=== PATIENT | male | born 1935 | race Caucasian/White ===

== ENCOUNTER → 2016-09-30 | Outpatient (CLI) | payer OTHER, MEDICARE | LOC: BHFA 14:00 | PROVIDERS: ATTEND Internal Medicine Cardiovascular Disease | DX: I42.8 Other cardiomyopathies (principal); I48.91 Unspecified atrial fibrillation ==

== ENCOUNTER → 2017-04-01 | Outpatient (CLI) | payer OTHER, MEDICARE ==
[~2017-04-01] MED LIST: IOPAMIDOL (ISOVUE-300) 100 ML BTL ONE
== END ==
LOC: FIMAGING 10:01
PROVIDERS: ATTEND Internal Medicine
DX: N20.0 Calculus of kidney (principal); N20.1 Calculus of ureter; N21.0 Calculus in bladder; K57.30 Diverticulosis of large intestine without perforation or abscess without bleeding; Z90.49 Acquired absence of other specified parts of digestive tract
CPT/HCPCS: 74178; Q9967

== ENCOUNTER 2017-04-22 23:45 | Observation (INO) | payer OTHER, MEDICARE ==
--- NOTE | 2017-04-22 23:55 | CPEKG ---
Heart Rate: 49 RR Interval: 1224 P-R Interval: 200 QRSD Interval: 92 QT Interval: 444 QTC Interval: 401 P Pioche: 58 QRS Pioche: -8 T Wave Pioche: 55 EKG Severity - OTHERWISE NORMAL ECG - EKG Impression: SINUS BRADYCARDIA Electronically Signed By: Buddy Loomis 24-Apr-2017 05:25:48
[2017-04-23 00:28] LABS: INR 1.78 (0.83-1.16); PROTIME(PATIENT) 20.8 SEC (12.0-15.0)
[2017-04-23 00:29] LABS: APTT 31.4 SEC (23.0-38.0)
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
[2017-04-23 00:42] LABS: % IMMATURE GRANULYOCYTES 0.4 % (0.0-1.1); ABSOLUTE IMMATURE GRANULOCYTES 0.02 10^3/uL (0.00-0.10); ADD DIFF? NO; ADD MORPH? NO; ADD SCAN? NO; ANION GAP 8 mEq/L (8-16); ATYPICAL LYMPHOCYTE FLAG 20 (0-99); CALCIUM 9.2 mg/dL (8.5-10.4); CARBON DIOXIDE 24 mEq/l (22-31); CHLORIDE 106 mEq/L (97-110); FRAGMENT RBC FLAG 0 (0-99); GLOMERULAR FILTRATION RATE > 60; GLUCOSE 94 mg/dL (70-100); HEMATOCRIT 44.7 % (40.0-51.0); HEMOGLOBIN 14.9 g/dL (13.7-17.5); LEFT SHIFT FLG 0 (0-99); LIPEMIA HEMOLYSIS FLAG 80 (0-99); MEAN CELL HEMOGLOBIN 28.9 pg (27.9-34.1); MEAN CELL HEMOGLOBIN CONCENTR. 33.3 g/dL (32.4-36.7); MEAN CELL VOLUME 86.6 fL (81.5-99.8); MEAN PLATELET VOLUME 9.1 fL (8.7-11.7); PLATELET CLUMPS FLAG 0 (0-99); PLATELET COUNT 146 10^3/uL (150-400); POTASSIUM 4.5 mEq/L (3.5-5.2); RED BLOOD CELL COUNT 5.16 10^6/uL (4.40-6.38); RED CELL DISTRIBUTION WIDTH 13.1 % (11.5-15.2); SODIUM 138 mEq/L (134-144)
[2017-04-23 00:54] LABS: TROPONIN I < 0.012 ng/mL (0.000-0.034)
[2017-04-23] MEDS ORDERED: ONDANSETRON DISINTEGRATING 4 MG TAB PO PRN (02:10)
[2017-04-23] MEDS ORDERED: ONDANSETRON 4 MG/2 ML VIAL IVP PRN (02:10)
[2017-04-23] MEDS ORDERED: ACETAMINOPHEN 325 MG TAB PO PRN ×2 (02:10→09:14)
--- NOTE | 2017-04-23 04:06 | PDGENHP ---
History and Physical - Chief Complaint Hand pain - History of Present Illness 81 yo M w/ hx of CAD and DVTs presents with bilateral posterior hand/wrist pain. Patient reports prior history of TN in 2013 and multiple subsequent events requiring stents (6 total) during which his anginal equivalent was elbow pain. He denies chest pain, SOB, or other associated symptoms currently, but never experienced any of those symptoms during his prior events either. The hand pain started during a meeting and was not brought on by exertion or emotional stress. It persisted in an on/off fashion for several hours so he decided to come to the ED. At the time of my evaluation he was pain free. History Information - Allergies/Home Medication List Allergies/Adverse Reactions: No Known Allergies Allergy (Verified 02/16/14 10:22) Home Medications: Atorvastatin Calcium [Lipitor 20 mg (*)] 20 mg PO DAILY 02/16/14 [Last Taken 04/25 06:00] Carvedilol [Coreg (*)] 6.25 mg PO BIDMEAL 02/16/14 [Last Taken 09/19/14 06:00] Cholecalciferol Vit D3 [Vitamin D3 (*)] 1,000 units PO DAILY 02/16/14 [Last Taken 09/19/14 06:00] Clopidogrel Bisulfate [Plavix (*)] 75 mg PO DAILY 02/16/14 [Last Taken 09/19/14 06:00] Levothyroxine [Synthroid 175 mcg (*)] 175 mcg PO DAILY06 02/16/14 [Last Taken 06:00] Losartan Potassium [Cozaar 25 mg (*)] 12.5 mg PO DAILY 02/16/14 [Last Taken 04/25 06:00] Multivitamins [Multivitamin (*)] 1 each PO DAILY 02/16/14 [Last Taken 09/19/14 06:00] Spironolactone [Aldactone 25 MG (*)] 12.5 mg PO DAILY 02/16/14 [Last Taken 09/19 06:00] Warfarin Sodium [Coumadin 2.5MG (*)] 3.75 mg PO TH 02/16/14 [Last Taken 09/15/14 ] Warfarin Sodium [Coumadin 2.5MG (*)] 2.5 mg PO [facility] 02/18/14 [Last Taken 09/14/14] Acetaminophen [Tylenol 325mg (*)] 650 mg PO BID PRN 09/15/14 [Last Taken 13:00] I have personally reviewed and updated: family history, medical history - Past Medical History coronary artery disease, DVT - Family History Additional family history: Adopted, does not know family hx - Social History Smoking Status: Never smoked Alcohol Use: None Drug Use: None Review of Systems Review of Systems: ROS: 10pt was reviewed & negative except for what was stated in HPI & below Physical Exam Physical Exam: Temp Pulse Resp BP Pulse Ox 36.6 C 46 L 16 156/71 H 90 L 04/23/17 02:13 04/23/17 02:13 04/23/17 02:13 04/23/17 02:13 04/23/17 02:13 O2 (L/minute) 2 Constitutional: no apparent distress, appears nourished Eyes: PERRL, EOMI Ears, Nose, Mouth, Throat: moist mucous membranes, no oral mucosal ulcers Cardiovascular: regular rate and rhythym, no murmur, rub, or gallop Respiratory: no respiratory distress, no rales or rhonchi Gastrointestinal: normoactive bowel sounds, soft, non-tender abdomen Skin: warm, normal color Musculoskeletal: full muscle strength, no muscle tenderness, other (No TTP at site of pain (dorsal hands/wrists)) Neurologic: AAOx3, CN II-XII Intact Psychiatric: interacting appropriately, not anxious Lab Data & Imaging Review 04/23/17 00:11 04/23/17 00:11 WBC 5.43 10^3/uL (3.80-9.50) 04/23/17 00:11 RBC 5.16 10^6/uL (4.40-6.38) 04/23/17 00:11 Hgb 14.9 g/dL (13.7-17.5) 04/23/17 00:11 Hct 44.7 % (40.0-51.0) 04/23/17 00:11 MCV 86.6 fL (81.5-99.8) 04/23/17 00:11 MCH 28.9 pg (27.9-34.1) 04/23/17 00:11 MCHC 33.3 g/dL (32.4-36.7) 04/23/17 00:11 RDW 13.1 % (11.5-15.2) 04/23/17 00:11 Plt Count 146 10^3/uL (150-400) L 04/23/17 00:11 MPV 9.1 fL (8.7-11.7) 04/23/17 00:11 Neut % (Auto) 51.0 % (39.3-74.2) 04/23/17 00:11 Lymph % (Auto) 34.4 % (15.0-45.0) 04/23/17 00:11 Robertson % (Auto) 9.4 % (4.5-13.0) 04/23/17 00:11 Eos % (Auto) 3.9 % (0.6-7.6) 04/23/17 00:11 Baso % (Auto) 0.9 % (0.3-1.7) 04/23/17 00:11 Nucleat RBC Rel Count 0.0 % (0.0-0.2) 04/23/17 00:11 Absolute Neuts (auto) 2.77 10^3/uL (1.70-6.50) 04/23/17 00:11 Absolute Lymphs (auto) 1.87 10^3/uL (1.00-3.00) 04/23/17 00:11 Absolute Monos (auto) 0.51 10^3/uL (0.30-0.80) 04/23/17 00:11 Absolute Eos (auto) 0.21 10^3/uL (0.03-0.40) 04/23/17 00:11 Absolute Basos (auto) 0.05 10^3/uL (0.02-0.10) 04/23/17 00:11 Absolute Nucleated RBC 0.00 10^3/uL (0-0.01) 04/23/17 00:11 Immature Gran % 0.4 % (0.0-1.1) 04/23/17 00:11 Immature Gran # 0.02 10^3/uL (0.00-0.10) 04/23/17 00:11 PT 20.8 SEC (12.0-15.0) H 04/23/17 00:11 INR 1.78 (0.83-1.16) H 04/23/17 00:11 APTT 31.4 SEC (23.0-38.0) 04/23/17 00:11 Sodium 138 mEq/L (134-144) 04/23/17 00:11 Potassium 4.5 mEq/L (3.5-5.2) 04/23/17 00:11 Chloride 106 mEq/L (97-110) 04/23/17 00:11 Carbon Dioxide 24 mEq/l (22-31) 04/23/17 00:11 Anion Gap 8 mEq/L (8-16) 04/23/17 00:11 BUN 22 mg/dL (7-23) 04/23/17 00:11 Creatinine 1.0 mg/dL (0.7-1.3) 04/23/17 00:11 Estimated GFR > 60 04/23/17 00:11 Glucose 94 mg/dL (70-100) 04/23/17 00:11 Calcium 9.2 mg/dL (8.5-10.4) 04/23/17 00:11 Troponin I < 0.012 ng/mL (0.000-0.034) 04/23/17 00:11 Visualized and Interpreted EKG results: Yes EKG additional interpertation: Sinus luiza, poor R wave progression in precordial leads Assessment & Plan Assessment: 81 yo M presenting with b/l dorsal hand pain, which may represent anginal equivalent. Plan: 1. Bilateral dorsal hand/wrist pain - Patient reports prior anginal equivalent was elbow pain. He has history of prior TN with multiple sents (he reports 6). Initial troponin and ECG without signs of acute ischemia. - Trend enzymes - Monitor on telemetry - If ACS rule-out negative, would likely recommend risk stratification w/ nuc stress as outpatient 2. Hx of CAD - With TN in 2013 and multiple stents since. On ASA, statin, BB as outpatient. 3. 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 On warfarin as outpatient, INR 1.7 on admission. Diet - NPO pending ACS rule-out Code - Full Ppx - Warfarin Dispo - Admit to observation status, suspect will be able to d/c home after period of observation
[2017-04-23 04:44] VITALS: TEMP 98.2; O2SAT 99
[2017-04-23 07:53] VITALS: BP 123/72; PULSE 49; RESP 12
[2017-04-23 08:04] LABS: ANION GAP 8 mEq/L (8-16); CALCIUM 8.5 mg/dL (8.5-10.4); CARBON DIOXIDE 23 mEq/l (22-31); CHLORIDE 108 mEq/L (97-110); CREATININE 0.8 mg/dL (0.7-1.3); GLOMERULAR FILTRATION RATE > 60; GLUCOSE 89 mg/dL (70-100); MAGNESIUM 1.7 mg/dL (1.6-2.3); POTASSIUM 4.2 mEq/L (3.5-5.2); SODIUM 139 mEq/L (134-144)
[2017-04-23 08:14] LABS: TROPONIN I < 0.012 ng/mL (0.000-0.034)
[2017-04-23] MEDS ORDERED: NITROGLYCERIN 0.4 MG BTL SL PRN (09:14)
[2017-04-23] MEDS ORDERED: CHOLECALCIFEROL VIT D3 1,000 UNITS TAB PO SCH (09:15)
[2017-04-23] MEDS ORDERED: ATORVASTATIN CALCIUM 20 MG TAB PO SCH (09:15)
[2017-04-23] MEDS ORDERED: LEVOTHYROXINE 175 MCG TAB PO SCH ×2 (09:15→09:30)
[2017-04-23] MEDS ORDERED: CLOPIDOGREL BISULFATE 75 MG TAB PO SCH (09:15)
--- NOTE | 2017-04-23 10:26 | GDS ---
[f rep st] DISCHARGE SUMMARY NEW DIAGNOSES: 1. Acute bilateral left wrist pain, musculoskeletal in origin. No evidence of cardiac ischemia. 2. Hypertension with initial elevated blood pressure, now normal. 3. Coumadin anticoagulation with an INR of 1.7. Anticoagulation for history of VTE. 4. History of coronary artery disease, status post myocardial infarction [address] acements. CONSULTATIONS: Cardiology. PROCEDURES: None. HOSPITAL COURSE: A 81-year-old male with a known history of coronary disease and VTE, on Coumadin an ticoagulation, who also suffers from hypertension. He presented with bilateral wrist pain. His prio r presentations for acute coronary ischemia had been bilateral elbow pain. He was concerned, present ed, and was found to have serial troponins which were normal. He never had chest pain, orthopnea, or PND. The remainder of his laboratory was normal. INR was 1.7 at the time of admission. The gentleman remained pain free. He was reassured that he was not having evidence of coronary ische hubert. It is noted that he has had a recurrent cough for the last 18 months and had been taking losart an. His losartan will be stopped due to a possibility that it is causing the cough, and his blood pr essure will be checked again as an outpatient. We will continue his Aldactone and Coreg for blood pr essure control. DISCHARGE MEDICATIONS: Stopped medication will be losartan. He will continue his other usual medica tions as follows: Vitamin D3 1000 international units daily; Aldactone 12.5 mg daily; multivitamin d aily; Synthroid 175 mcg daily; Plavix 75 daily; Coreg 6.5 mg twice daily; Lipitor 20 mg daily; Coumad in 1.25 mg on Friday and 2.5 mg Friday, Friday, Friday, , Friday; Tylenol p.r.n. ; nitroglycerin 0.4 mg sublingual p.r.n. FOLLOWUP: He will follow up with Dr. Alex Crowe in approximately 2 weeks, and that appointment will be established through [facility]. At that time, blood pressure will also be recheck in light of stopping his Cozaar. Should he have further evidence of chest pain, he will follow up more quickly with [facility] or return to the emergency department. Matters to be addressed at the first followup: A recheck of the gentleman's blood pressure in light of the fact that we have now stopped the Cozaar. TIME: This discharge required 40 minutes, greater than 50% to weight loss counselor, coordinate his care, and expl ain to the patient our findings and the reason for stopping the Cozaar. /[id number]/MODL
--- NOTE | 2017-04-23 14:59 | ASDISCHSUM ---
Discharge Information Plan Status:Home with No Needs Medically Cleared to Leave: Discharge Date:04/23/2017 10:01 AM CM D/C Disposition:Home, Routine, Self-Care ADT D/C Disposition:Home, Routine, Self-Care Projected Discharge Date:04/23/2017 10:01 AM Transportation at D/C: Discharge Delay Reason: Follow-Up Date:04/23/2017 10:01 AM Discharge Slot: Final Diagnosis: Placement Information Patient Contact Information Contact Name:BOBO Relationship: Address:[address] [place] [address] City:[place] Alternate Phone: [facility] Code: [id number] Email: Financial Information Financial Class: Primary Plan Desc:MEDICARE OUTPATIENT Primary Plan Number:[id number] Secondary Plan Desc:[employer]/MDR SUPPLEMENT Secondary Plan Number:[id number] Assessment Information Intervention Information Intervention Type:*MARADIAGA-Signed Date of Service:04/23/2017 09:30 AM Patient Type:Observation Staff Member:Mary Caldera Hours: Discipline: Severity: Comment:
[2017-04-23] MEDS ORDERED: WARFARIN SODIUM 2.5 MG TAB PO SCH (16:00)
[2017-04-23] MEDS ORDERED: CARVEDILOL 6.25 MG TAB PO SCH (18:00)
--- NOTE | 2017-04-24 03:43 | GCON ---
[f rep st] CONSULTATION DATE OF CONSULTATION: 04/23/2017 CHIEF COMPLAINT: We have been asked by Dr. Syed to evaluate this patient with the chief complaint of bilateral wrist pain. HISTORY OF PRESENT ILLNESS: The patient is a 81-year-old gentleman with known coronary artery diseas e, who presents with the chief complaint of bilateral wrist pain. The patient was in his usual state of health until the evening of admission, when he began to experience bilateral wrist pain. The keith n is described as an ache and is not associated with nausea, vomiting, or diaphoresis. There are no obvious precipitating or relieving factors. The patient became concerned that the bilateral wrist pa in may be a symptom of ischemic heart disease, and presented to the emergency department for further evaluation. In the emergency department, he had an EKG performed, which demonstrated no acute ST and T-wave changes. His initial biomarkers were within normal limits. The patient was admitted to the hospital for further evaluation. We have been consulted to help in the further management of this pa tient. The patient does have a previous history of coronary artery disease, and is status post a pre vious anterior myocardial infarction. He has been treated with previous percutaneous coronary interv entions of his left anterior descending coronary artery, as well as his right coronary artery. His p revious anginal symptoms, however, were bilateral elbow pain associated with shortness of breath. Th e patient denies his typical anginal symptoms. 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 The patient denies symptoms of orthopnea and PND . The patient has been under stress with the recent loss of his . PAST MEDICAL HISTORY: 1. Coronary artery disease. 2. Hypertension. 3. Hyperlipidemia. 4. Hypothyroidism. 5. History of deep venous thrombosis and pulmonary embolism. MEDICATIONS: Please see medicine reconciliation form. ALLERGIES: No known drug allergies. SOCIAL HISTORY: The patient has been under stress with the recent loss of his . He does not smo ke. He denies problems with alcohol. FAMILY HISTORY: Unknown as patient is adopted. REVIEW OF SYSTEMS: A 10-point review of systems is negative, except as noted in the HPI. PHYSICAL EXAMINATION: GENERAL: The patient is resting comfortably in bed. He does not appear to be in acute distress. VITAL SIGNS: Temperature is afebrile. Pulse is 49, blood pressure 123/72, resp iratory rate is 12, SaO2 is 99% on 2 L nasal cannula. HEENT: Normocephalic, atraumatic. Extraocula r muscles intact. NECK: No JVD. No bruits. LUNGS: Clear to auscultation bilaterally. CARDIOVASC ULAR: Regular rate and rhythm, S1, S2. Grade 2/6 holosystolic murmur is noted at the left sternal b order. ABDOMEN: Soft, nontender. Normoactive bowel sounds. No hepatosplenomegaly noted. Aorta co uld not be palpated. EXTREMITIES: No clubbing, cyanosis, or edema. Of note, the patient's bilatera l wrist pain was reproduced with palpation of the metacarpophalangeal joint. SKIN: No evidence of r ashes. NEURO: Patient awake, alert, and oriented x3. LABORATORY: White blood cell count 5.43. Hemoglobin 14.9, hematocrit 44.7, platelet count 146, INR 1.78. Sodium 139, potassium 4.2, chloride 108, CO2 23, BUN 18, creatinine 0.8. Troponin within norm al limits x2. EKG demonstrates sinus bradycardia, normal axis. Normal intervals. No acute ST or T- wave changes. ASSESSMENT AND PLAN: The patient is a 81-year-old gentleman with known coronary artery disease, who presents with bilateral wrist pain. The patient's wrist pain is unlike his previous anginal pain, wh ich he has had on multiple occasions, which is described as bilateral elbow pain. The pain is reprod uced with palpation of the metacarpophalangeal joints. There is no evidence of ischemia by EKG or bi omarker criteria. Suspect the patient's current symptomatology is likely secondary to musculoskeleta l stress. I think it is reasonable to discharge patient home. Will obtain a stress test for risk st ratification as an outpatient. /[id number]/MODL
[2017-04-24] MEDS ORDERED: SPIRONOLACTONE 25 MG TAB PO SCH (09:00)
[2017-04-24] MEDS ORDERED: MULTIVITAMINS 1 EACH TAB PO SCH (09:00)
[2017-04-29] MEDS ORDERED: LEVOTHYROXINE 175 MCG TAB PO SCH (06:00)
[2017-04-29] MEDS ORDERED: WARFARIN SODIUM 2.5 MG TAB PO SCH (16:00)
== END 2017-04-23 10:01 | disposition home or self-care (01) ==
LOC: F2W 04-23 02:00
PROVIDERS: ADMIT Student in an Organized Health Care Education/Training Program; ATTEND Internal Medicine Pulmonary Disease
DX: M25.531 Pain in right wrist (principal); M25.532 Pain in left wrist; I25.10 Atherosclerotic heart disease of native coronary artery without angina pectoris; R91.1 Solitary pulmonary nodule; I25.2 Old myocardial infarction; I10 Essential (primary) hypertension; R78.5 Finding of other psychotropic drug in blood; E03.9 Hypothyroidism, unspecified; J45.909 Unspecified asthma, uncomplicated; G47.33 Obstructive sleep apnea (adult) (pediatric); Z86.718 Personal history of other venous thrombosis and embolism; Z86.711 Personal history of pulmonary embolism; Z95.5 Presence of coronary angioplasty implant and graft; Z96.653 Presence of artificial knee joint, bilateral; Z79.01 Long term (current) use of anticoagulants; Z79.82 Long term (current) use of aspirin
CPT/HCPCS: 71020; 93005; 99285; G0378

== ENCOUNTER → 2017-04-22 | Outpatient (CLI) | payer OTHER, MEDICARE | LOC: FIMAGING 10:22 | PROVIDERS: ATTEND Physician Assistant Medical | DX: N20.2 Calculus of kidney with calculus of ureter (principal) ==

== ENCOUNTER → 2017-04-24 | Outpatient (CLI) | payer OTHER, MEDICARE | LOC: CIMAGING 10:22 | PROVIDERS: ATTEND Specialist | DX: N13.2 Hydronephrosis with renal and ureteral calculous obstruction (principal); K44.9 Diaphragmatic hernia without obstruction or gangrene; I70.0 Atherosclerosis of aorta | CPT/HCPCS: 74176-PO ==

== ENCOUNTER → 2017-04-30 | Outpatient (CLI) | payer OTHER, MEDICARE ==
--- NOTE | 2017-04-30 14:38 | CPR ---
[f rep st] NONINVASIVE CARDIAC PROCEDURE REPORT DATE OF PROCEDURE: 04/30/2017 STUDY: Exercise treadmill stress test. This is an outpatient stress test. REASON FOR TEST: 1. Coronary artery disease. 2. PVCs. FINDINGS: Resting EKG shows a regular sinus bradycardic rate of 44, no ischemic changes noted. Rest ing blood pressure is 138/82. Resting heart rate 44, oxygen saturation 94%. Stress portion: He was exercised according to the Rene protocol for a total of 9 minutes. Max met effort 9.5, maximal heart rate 120. Max blood pressure 168/78. He did have an increase in PVCs with some bigeminy during exercise. He remained asymptomatic. RECOVERY: He spontaneously recovered. EKG remained sinus. PVCs became occasional during recovery. There were no ischemic changes. Resting recovery blood pressure 164/80, heart rate 64. He had good exercise tolerance. At this time, he currently is stable for nuclear imaging. /[id number]/MODL
== END ==
LOC: FIMAGING 12:26
PROVIDERS: ATTEND Internal Medicine Cardiovascular Disease
DX: I51.89 Other ill-defined heart diseases (principal); I25.2 Old myocardial infarction; Z95.5 Presence of coronary angioplasty implant and graft

== ENCOUNTER 2017-05-29 06:25 | Observation (INO) | payer OTHER, MEDICARE ==
[~2017-05-29 06:25] MED LIST changes: -IOPAMIDOL (ISOVUE-300) 100 ML BTL ONE; +levOFLOXACIN 500 MG/DEXTROSE 100 ML IV ONE
[2017-05-29] MEDS ORDERED: LR 1,000 ML IV ONE (07:06)
[2017-05-29] MEDS ORDERED: LIDOCAINE 1% 2 ML INJ ID PRN (07:06)
[2017-05-29 07:41] LABS: INR 1.1 (0.83-1.16); PROTIME(PATIENT) 14.1 SEC (12.0-15.0)
--- NOTE | 2017-05-29 08:16 | PDANEPAE ---
ANE History of Present Illness urolitiasis ANE Past Medical History - Cardiovascular History Hx Hypertension: Yes Hx Arrhythmias: No Hx Chest Pain: No Hx Coronary Artery / Peripheral Vascular Disease: No Hx CHF / Valvular Disease: No Hx Palpitations: No Cardiovascular History Comment: has pvc's with elevated hr - Pulmonary History Hx COPD: No Hx Asthma/Reactive Airway Disease: No Hx Recent Upper Respiratory Infection: No Hx Oxygen in Use at Home: No Hx Sleep Apnea: Yes Sleep Apnea Screening Result - Last Documented: Positive Pulmonary History Comment: mild asthma enviromental - Neurologic History Hx Cerebrovascular Accident: No Hx Seizures: No Hx Dementia: No - Endocrine History Hx Diabetes: No - Renal History Hx Renal Disorders: No - Liver History Hx Hepatic Disorders: No - Neurological & Psychiatric Hx Hx Neurological and Psychiatric Disorders: No - Cancer History Hx Cancer: No - Congenital Disorder History Hx Congenital Disorders: No - GI History Hx Gastrointestinal Disorders: No - Other Health History Other Health History: none - Chronic Pain History Chronic Pain: No - Surgical History 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 ANE Review of Systems Review of Systems: - Exercise capacity METS (RN): 5 METS ANE Patient History - Allergies Allergies/Adverse Reactions: No Known Allergies Allergy (Verified 02/16/14 10:22) - Home Medications Home Medications: RX: Atorvastatin Calcium [Lipitor 20 mg (*)] 02/16/14 [Last Taken 05/29/17 06: 00] RX: Carvedilol [Coreg (*)] 02/16/14 [Last Taken 05/29/17 06:00] RX: Cholecalciferol Vit D3 [Vitamin D3 (*)] 02/16/14 [Last Taken 05/24/17] RX: Clopidogrel Bisulfate [Plavix (*)] 02/16/14 [Last Taken 05/29/17 06:00] RX: Levothyroxine [Synthroid 175 mcg (*)] 02/16/14 [Last Taken 04/22/17] RX: Multivitamins [Multivitamin (*)] 02/16/14 [Last Taken 05/24/17] RX: Spironolactone [Aldactone 25 MG (*)] 02/16/14 [Last Taken 05/28/17 08:00] RX: Warfarin Sodium [Coumadin 2.5MG (*)] 02/16/14 [Last Taken 04/22/17] RX: Warfarin Sodium [Coumadin 2.5MG (*)] 02/18/14 [Last Taken 05/26/17] RX: Acetaminophen [Tylenol 325mg (*)] 09/15/14 [Last Taken 05/15/17] RX: Levothyroxine [Synthroid 175 mcg (*)] 04/23/17 [Last Taken 05/29/17 06:00] RX: Nitroglycerin [Nitrostat 0.4 mg (*)] 04/23/17 [Last Taken Unknown] ISOSORBIDE DINITRATE PRN 05/07/17 [Last Taken Unknown] - NPO status NPO Since - Liquids (Date): 05/28/17 NPO Since - Liquids (Time): 21:00 NPO Since - Solids (Date): 05/28/17 NPO Since - Solids (Time): 18:15 - Smoking Hx Smoking Status: Never smoked - Family Anes Hx Family Hx Anesthesia Complications: none ANE Labs/Vital Signs - Vital Signs Blood Pressure: 107/58 Heart Rate: 52 Respiratory Rate: 16 O2 Sat (%): 93 Height: 177.8 cm Weight: 97.522 kg ANE Physical Exam - Airway Neck exam: FROM Mallampati Score: Class 2 Mouth exam: normal dental/mouth exam - Pulmonary Pulmonary: no respiratory distress - Cardiovascular Cardiovascular: regular rate and rhythym - ASA Status ASA Status: III ANE Anesthesia Plan Anesthesia Plan: GA w LMA
--- NOTE | 2017-05-29 08:20 | PDHPUP ---
History & Physical Update H&P update statement: This history and physical update is based on an assessment of the patient which was completed after admission or registration (within 24 hours), but prior to the surgery/procedure. H&P update: H&P reviewed & patient examined
[2017-05-29] MEDS ORDERED: ONDANSETRON 4 MG/2 ML VIAL ONE (08:27)
[2017-05-29] MEDS ORDERED: fentaNYL 100 MCG/2 ML INJ ONE ×5 (08:27→13:37)
[2017-05-29] MEDS ORDERED: DEXAMETHASONE 4 MG/ML VIAL ONE (08:27)
[2017-05-29] MEDS ORDERED: PROPOFOL 200 MG/20 ML VIAL ONE ×2 (08:28)
[2017-05-29] MEDS ORDERED: IOPAMIDOL (ISOVUE-M 300) 15 ML VIAL ONE (08:45)
[2017-05-29] MEDS ORDERED: LIDOCAINE 2% JELLY 20 ML (UROJECT) ONE (08:45)
[2017-05-29] MEDS ORDERED: ONDANSETRON 4 MG/2 ML VIAL IVP PRN ×2 (09:30→14:51)
[2017-05-29] MEDS ORDERED: PROMETHAZINE HCL 25 MG/ML INJ IVP PRN ×2 (09:30→14:51)
[2017-05-29] MEDS ORDERED: NALOXONE HCL 0.4 MG/ML INJ IVP PRN (09:30)
--- NOTE | 2017-05-29 10:28 | POSTANESTH ---
Post Anesthetic Evaluation Cardiovascular Status: Normal, Stable Respiratory Status: Normal, Stable Level of Consciousness/Mental Status: Can Participate in Eval Pain Control: Adequate, Prn Tx Ordered Nausea/Vomiting Control: Adequate, Prn Tx Ordered Complications Possibly Related to Anesthesia: None Noted
--- NOTE | 2017-05-29 10:30 | POSTOPPROG ---
Post Op Note Date of Operation: 05/29/17 Surgeon: Azeem Trimble (# [id number]) Anesthesia: GET(General Endotracheal) Pre-op Diagnosis: 1. Left ureteral calculus 2. Left renal calculus 3. Mult. bladder ston Post-op Diagnosis: 1. Left renal calculus 2. Multiple bladder stones Procedure: Cysto, Left ureteroscopy/nephroscopy w/ laser, complex cystolitholapaxy Findings: See op note Inf/Abcess present in the surg proc area at time of surgery?: No EBL: Minimal Complications: None Drains: Other (4.7 Fr. x 24 cm left ureteral stent) Specimen(s): None
[2017-05-29] MEDS: fentaNYL 100 MCG/2 ML INJ IVP PRN ×5 (10:56→13:42)
[2017-05-29] MEDS ORDERED: PHENAZOPYRIDINE HCL 200 MG TAB ONE (10:59)
[2017-05-29] MEDS: PHENAZOPYRIDINE HCL 200 MG TAB PO SCH ×3 (11:33→21:14)
[2017-05-29] MEDS ORDERED: HYDROCODONE/APAP 5/325 TAB PO PRN (11:35)
[2017-05-29] MEDS ORDERED: HYDROCODONE/APAP 5/325 TAB ONE (11:39)
--- NOTE | 2017-05-29 13:17 | GOP ---
[f rep st] OPERATIVE REPORT DATE OF OPERATION: 05/29/2017 SURGEON: Azeem Trimble MD ANESTHESIA: General endotracheal. PREOPERATIVE DIAGNOSIS: 1. Left nephroureterolithiasis. 2. Multiple bladder calculi. POSTOPERATIVE DIAGNOSIS: 1. Dominant left lower pole nephrolithiasis. 2. Spontaneously-passed left ureterolithiasis. 3. Multiple bladder calculi. PROCEDURE PERFORMED: 1. Cystourethroscopy, left retrograde pyelography. 2. Left ureteroscopy and nephroscopy with holmium laser lithotripsy of dominant left renal calculus. 3. Complex cystolitholapaxy. FINDINGS: 1. No evidence of remaining left ureteral calculi. 2. Dominant left lower pole renal calculus, managed as noted in the body of the operative report. 3. Multiple small bladder calculi, each ranging up to 1 cm in diameter. SPECIMENS: None. ESTIMATED BLOOD LOSS: Minimal. INDICATIONS: This gentleman was recently identified to have multiple bladder calculi as well as a distal left ureteral calculus. CT imaging also identified a dominant left lower pole renal calculus that was approximately 1 cm in diameter. It was recommended the patient undergo intraoperative management, particularly for the left ureteral calculus and multiple bladder calculi. The indications for the procedures, as well as potential risks and complications, were discussed with the patient preoperatively. He appeared to understand, his questions were answered, and he wished to proceed. Written informed surgical consent was thereafter obtained. DESCRIPTION OF PROCEDURE: The patient was brought to the operating room and administered general endotracheal anesthesia. He was carefully placed in the dorsal lithotomy position on the cystoscopic table. The genital area was sterilely prepped with Betadine scrub and paint then draped in usual sterile fashion. Cystoscopy was performed with 30-degree and 70-degree lenses through a 22-Turkmen sheath. Anterior urethra revealed no abnormalities. Posterior urethra revealed mild to moderate lateral lobe BPH and a small intravesical prostatic median lobe. The bladder was heavily trabeculated with numerous diverticula, located particularly along the base of the bladder. There were multiple calculi seen within the bladder, the largest being approximately 1 cm. Several of these were located within some of the deeper bladder diverticula. No areas of abnormal erythema nor tumors were otherwise seen. Ureteral orifices were normal in regard to shape and position along the trigone. I did evaluate the left ureter first and dealt with the bladder stones last. Therefore, a cone-tip catheter was used to perform retrograde pyelography on the left side. This revealed some J-hooking of the distal left ureter but no obvious intraluminal filling defects and no hydronephrosis. Fluoroscopic imaging before contrast injection did reveal a sizable highly radiopaque calculus in the lower pole of the left kidney. This correlated with the one that was noted to be approximately 1 cm diameter on preoperative imaging. After completion of retrograde pyelography, I decided to proceed with ureteroscopy to ensure there were no remaining calculi in the left ureter. Therefore, I passed a 0.035 inch angle-tipped hydrophilic guidewire up the left ureter until it was seen within the renal collecting system fluoroscopically. The distal aspect of the ureter was dilated with a 4 cm balloon by maintaining a pressure of 16 atmospheres for about 4 minutes. The balloon dilator and cystoscope were then removed while keeping the guidewire in place. Semi-rigid ureteroscopy was performed alongside the guidewire. The ureteroscope was advanced all the way to the ureteropelvic junction, and no calculi were seen within the ureter. It appeared that the left ureteral calculus had spontaneously passed, either into the bladder or spontaneously completely out. At this point, I decided to attempt to perform retrograde flexible nephroscopy in an effort to deal with the dominant left lower pole renal calculus. Therefore, a 0.035 inch Super Stiff Amplatz guidewire was advanced through the rigid ureteroscope until it was seen within the renal collecting system fluoroscopically. The ureteroscope was then removed, thereby keeping [address] A 55 cm hydrophilic ureteral access sheath was advanced over the Amplatz guidewire, under active fluoroscopy, until the proximal aspect of the sheath was seen at the ureteropelvic junction. The inner obturator and Amplatz guidewire were then removed, thereby keeping the outer access sheath and secondary guidewire in place. Flexible ureteroscopy and nephroscopy were performed through the ureteral access sheath. I was able to identify the dominant calculus in the lower pole of the left kidney. I used a 200 micron holmium laser fiber to fully fragment this calculus into minute pieces, to the point that no fragments were larger than 1 mm at the conclusion of the case. I flushed as many of these little stone fragments from the lower pole and into the renal pelvis as possible. The ureteroscope and ureteral access sheath were then removed in tandem while keeping the guidewire in place. There was minimal ureteral mucosal trauma as a result of the operative process. The cystoscope was then back loaded over the guidewire and a 4.7-Turkmen by 24 cm hydrophilic ureteral stent advanced over the guidewire until it was properly positioned as seen fluoroscopically in the kidney and cystoscopically in the bladder. I then used an Ellik evacuator and flexible grasping forceps to remove all of the bladder calculi. None of these were submitted for chemical analysis. At the conclusion of the procedure, the bladder was free of calculi and the left ureteral stent was in proper position. The instruments were removed, and the urine return was clear at this point. Then, 20 cc of 2% lidocaine was injected transurethrally for postoperative analgesic purposes. The patient was then awakened, extubated, transferred to his bed, then taken to the recovery room. He tolerated the procedure well overall. COMPLICATIONS: None. DISPOSITION: He was transferred to the recovery room in stable condition. He will be instructed to follow up in my office in approximately 3 weeks for ureteral stent removal. KUB will be obtained at that time as well. /[id number]/MODL MTDD
[2017-05-29] MEDS ORDERED: KETOROLAC 15 MG/1 ML SDV IVP ONE (14:22)
[2017-05-29] MEDS ORDERED: HYDROCODONE/APAP 10/325 TAB PO PRN (14:51)
[2017-05-29] MEDS ORDERED: D5W 1/2 NS 1,000 ML IV SCH (15:00)
[2017-05-29] MEDS ORDERED: HYDROmorphONE/DILAUDID 1 MG/ML INJ IVP PRN (15:35)
[2017-05-29] MEDS: KETOROLAC 15 MG/1 ML SDV IVP SCH (20:45)
[2017-05-29 22:06] VITALS: RESP 16
[2017-05-30] MEDS: PHENAZOPYRIDINE HCL 200 MG TAB PO SCH ×3 (00:09→08:50)
[2017-05-30 03:38] VITALS: O2SAT 93
[2017-05-30] MEDS: KETOROLAC 15 MG/1 ML SDV IVP SCH ×2 (03:47→08:49)
[2017-05-30 08:34] VITALS: BP 155/71; PULSE 48; TEMP 98
--- NOTE | 2017-05-30 14:34 | ASDISCHSUM ---
Discharge Information Plan Status: Medically Cleared to Leave: Discharge Date:05/30/2017 09:30 AM CM D/C Disposition: ADT D/C Disposition:Home, Routine, Self-Care Projected Discharge Date:05/30/2017 09:30 AM Transportation at D/C: Discharge Delay Reason: Follow-Up Date:05/30/2017 09:30 AM Discharge Slot: Final Diagnosis: Placement Information Patient Contact Information Contact Name:DENISE Relationship:Son Address:[address] [place] [address] City:[place] Alternate Phone: State/Zip Code: [address] Email: Financial Information Financial Class: Primary Plan Desc:MEDICARE INPATIENT Primary Plan Number:[id number] Secondary Plan Desc:[employer]/M[employer] SUPPLEMENT Secondary Plan Number:[id number] Assessment Information Intervention Information Intervention Type:*Incorrect Registration Date of Service:05/30/2017 09:52 AM Patient Type:Observation Staff Member:MEGAN Interiano Courtney Hours: Discipline: Severity: Comment:
== END 2017-05-30 09:30 | disposition home or self-care (01) ==
LOC: FSGY 06:25 → INTOOBSV 16:10 → F1N 16:10
PROVIDERS: ADMIT Specialist; ATTEND Specialist
DX: N21.0 Calculus in bladder (principal); N13.2 Hydronephrosis with renal and ureteral calculous obstruction; Z87.442 Personal history of urinary calculi; I25.2 Old myocardial infarction; Z86.718 Personal history of other venous thrombosis and embolism; R35.1 Nocturia; N28.1 Cyst of kidney, acquired
CPT/HCPCS: 52317; 52356; 76001; C1726; C1758; C1769; C1894; C2625; J1100; J1885; J1956; J2405; J2704; J3010; Q9967

== ENCOUNTER → 2017-06-18 | Outpatient (CLI) | payer OTHER, MEDICARE | LOC: FIMAGING 13:57 | PROVIDERS: ATTEND Specialist | DX: Z87.442 Personal history of urinary calculi (principal) ==

== ENCOUNTER 2018-01-05 14:57 | Emergency (ER) | payer OTHER, MEDICARE ==
[2018-01-05] MEDS ORDERED: TDAP ADULT 0.5 ML INJ (BOOSTRIX) IM ONE (15:58)
--- NOTE | 2018-01-05 16:03 | EDPHY ---
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 His arm did not get impacted by the wood physician's assistant proper. No paresthesia. No sensory motor deficit. Notes that these edema has decreased since placing ice packs on it. Incident occurred earlier today. PHYSICAL EXAM (Prior to examination, patient consented to physical exam, hands were washed and my usual and customary physical exam procedures followed) 1) GENERAL: Well-developed, well-nourished, alert and oriented. Appears to be in no acute distress. 2) HEAD: Normocephalic 3) HEENT: sclera anicteric 4) LUNGS: Breathing comfortably. 5) SKIN: Right upper extremity: Multiple superficial abrasions and skin avulsions. Multiple areas of ecchymosis. Soft compartments. Distal pulses are present and brisk with brisk capillary refill normal temperature. 6) MUSCULOSKELETAL: Tender to palpation of the mid shaft radius. 7) NEUROLOGIC: Radial ulnar median nerve function intact. Smoking Status: Never smoked Constitutional: Initial Vital Signs Temperature (C) 36.4 C 01/05/18 15:03 Heart Rate 56 L 01/05/18 15:03 Respiratory Rate 16 01/05/18 15:03 Blood Pressure 152/73 H 01/05/18 15:03 O2 Sat (%) 95 01/05/18 15:03 O2 Delivery Mode Room Air Allergies/Adverse Reactions: No Known Allergies Allergy (Verified 01/05/18 15:01) Home Medications: Medication Instructions Recorded Atorvastatin Calcium [Lipitor 20 20 mg PO DAILY 05/29/17 mg (*)] Carvedilol [Coreg (*)] 6.25 mg PO BIDMEAL 05/29/17 Cholecalciferol Vit D3 [Vitamin D3 1,000 units PO DAILY 05/29/17 (*)] Clopidogrel Bisulfate [Plavix (*)] 75 mg PO DAILY 05/29/17 Levothyroxine [Synthroid 175 mcg 87.5 mcg PO TU@06 05/29/17 (*)] Levothyroxine [Synthroid 175 mcg 175 mcg PO SUMOWETHFR@05/29/17 (*)] Multivitamins [Multivitamin (*)] 1 each PO DAILY 05/29/17 Nitroglycerin [Nitrostat 0.4 mg 0.4 mg SL Q5M PRN 05/29/17 (*)] Spironolactone [Aldactone 25 MG 12.5 mg PO DAILY 05/29/17 (*)] Warfarin Sodium [Coumadin 2.5MG 1.25 mg PO TU@05/29/17 (*)] Warfarin Sodium [Coumadin 2.5MG 2.5 mg PO SUMOWETHFRSA@05/29/17 (*)] MDM/Departure - MDM Imaging Results: Imaging Impressions Forearm X-Ray 01/05/18 15:59 Impression: No evidence of fracture of the right radius or ulna. Medications Given: Discontinued Medications Diphtheria/Tetanus/Acell Pertussis (Boostrix) 0.5 ml IM .ONCE ONE Stop: 01/05/18 15:59 Last Admin: 01/05/18 16:25 Dose: 0.5 ml ED Course/Re-evaluation: Tetanus has been updated, x-ray obtained showing no osseous abnormality. Wound has been cleansed. INR obtained which is subtherapeutic. Notes that he missed his last dose. He will continue with his normal dosing of Coumadin.. Usual and customary orthopedic and wound precautions provided. I saw this patient independently based on established practice protocols. Care of patient under supervision of secondary supervising physician Dr Madsen. - Depart Disposition: Home, Routine, Self-Care Clinical Impression: Abrasion of right forearm Qualifiers: Encounter type: initial encounter Qualified Code(s): S50.811A - Abrasion of right forearm, initial encounter Condition: Good Instructions: Abrasion (ED) Additional Instructions: Return to the ER if you develop redness, swelling, discharge, warmth to the wound, red streaks going up your arm, or any other symptoms that concern you. Referrals: Quentin Ac MD [Primary Care Provider] - 2-3 days, call for appt.
[2018-01-05 16:37] LABS: INR 1.72 (0.83-1.16); PROTIME(PATIENT) 20.3 SEC (12.0-15.0)
[2018-01-05 17:10] VITALS: BP 150/86
== END 2018-01-05 17:10 | disposition home or self-care (01) ==
DX: S50.811A Abrasion of right forearm, initial encounter (principal); Z23 Encounter for immunization; Z79.01 Long term (current) use of anticoagulants; W22.8XXA Striking against or struck by other objects, initial encounter; Y99.8 Other external cause status

== ENCOUNTER → 2018-09-16 | Outpatient (CLI) | payer OTHER, MEDICARE | LOC: FIMAGING 11:20 | PROVIDERS: ATTEND Physician Assistant | DX: J98.09 Other diseases of bronchus, not elsewhere classified (principal); I51.7 Cardiomegaly ==

== ENCOUNTER → 2018-11-26 | Outpatient (CLI) | payer OTHER, MEDICARE | LOC: FIMAGING 15:27 | PROVIDERS: ATTEND Physician Assistant | DX: G31.9 Degenerative disease of nervous system, unspecified (principal); I67.2 Cerebral atherosclerosis; I25.2 Old myocardial infarction ==